=== PATIENT | female | born 1985 | race American Indian/Alaskan Native ===

== ENCOUNTER 2017-12-23 08:37 | Emergency (ER) | payer MEDICAID ==
[2017-12-23 08:47] VITALS: TEMP 97.8
[2017-12-23] MEDS ORDERED: Bacitracin Ointment 30 GM TUBE TOP STA (09:11)
--- NOTE | 2017-12-23 09:14 | C.PDOC ---
History Of Present Illness 32 yo female come in for evaluation of Left ankle/left knee pain developed [employer] after sustained twisting injury. Pt reports, "tripped over sidewalk with Left foot, fell down onto Left knee". Pt reports, pain is localized over Left ankle and knee, noted some abrasion to Left knee. Otherwise, pt denies head injury, LOC, syncope, neck pain, CP, SOB, denies deformity, weakness, sensory or vascular deficits to B/L UEs and LEs. Ambulate to ED. Time Seen by Provider: 12/23/17 08:48 Chief Complaint (Nursing): Lower Extremity Problem/Injury History Per: Patient Past Medical History Reviewed: Historical Data, Nursing Documentation, Vital Signs Vital Signs: Last Vital Signs Temp 97.8 F 12/23/17 08:42 Pulse 83 12/23/17 08:42 Resp 18 12/23/17 08:42 BP 112/72 12/23/17 08:42 Pulse Ox 97 12/23/17 09:19 - Medical History PMH: No Chronic Diseases Family History: States: No Known Family Hx - Social History Hx Alcohol Use: Yes Hx Substance Use: No - Immunization History Hx Tetanus Toxoid Vaccination: Yes (3-4 yrs ago) Hx Influenza Vaccination: No Hx Pneumococcal Vaccination: No Review Of Systems Except As Marked, All Systems Reviewed And Found Negative. Constitutional: Negative for: Fever, Chills ENT: Negative for: Ear Discharge, Nose Discharge, Throat Pain Cardiovascular: Negative for: Chest Pain, Palpitations Gastrointestinal: Negative for: Nausea, Vomiting Musculoskeletal: Positive for: Foot Pain, Other (knee pain) Skin: Positive for: Bruising Neurological: Negative for: Weakness, Numbness, Altered Mental Status, Headache Physical Exam - Physical Exam Appears: Well, Non-toxic, No Acute Distress Skin: Normal Color, Warm, Other (abrasion over Left knee) Head: Atraumatic, Normacephalic Eye(s): bilateral: PERRL Ear(s): Bilateral: Normal Nose: No Deformity, No Tenderness Neck: Normal ROM, Trachea Midline, No Midline Cervical Tenderness, No Paracervical Tenderness, No Step Off Deformity, Supple Chest: Symmetrical, No Deformity, No Tenderness Gastrointestinal/Abdominal: Soft, No Tenderness, No Distention, No Guarding Back: No Vertebral Tenderness, No Paraspinal Tenderness Extremity: Normal ROM (mild discomfort to Left ankle extension. NO neurovascular deficits.), Tenderness (over anterior aspct left knee, medial malleolus Left ankle), Capillary Refill (less than 2sec to Left foot), No Deformity, No Swelling Neurological/Psych: Oriented x3, Normal Speech, Normal Motor, Normal Sensation, Normal Reflexes ED Course And Treatment O2 Sat by Pulse Oximetry: 97 - Other Rad B/L ankle X-Ray: Interpreted by Me Interpretation: (-) acute fx or dislocation. Left knee X-Ray: Interpreted by Me Interpretation: (_) acute fx or dislocation. B/L feet X-Ray: Interpreted by Me, Viewed By Me Interpretation: (-) acute fx or dislocation Progress Note: On re-eval, pt is afebrile, hemodynamicaly stable. Non-toxic. Ambulatory in ED. Head: AT/NC. Neck: SUpple, (-) midline tenderness. Left knee: (+) abrasion over anterior aspect knee. FAROM, no neurovascular deficits. Left ankle: mild tendernes sover medial aspect ankle. no deformity. FAROM, no neurovascular deficits. IMagings review (-) acute fx or dislocation. Ivan wrap applied to Left knee. air cast applied to Left ankle. Pt advised. ref. to F/ u with Podiatry Clinic for further eval Disposition Counseled Patient/Family Regarding: Studies Performed, Diagnosis, Need For Followup, Rx Given - Disposition Referrals: [facility] [Outside] Disposition: HOME/ ROUTINE Disposition Time: 09:30 Condition: STABLE Additional Instructions: RICE-rest, ice, compression, elevation SPlint for 1 week Take Ibuprofen as need for pain Follow up with Podiatry [facility] on Sunday from 12PM-3PM for further evaluation as need return to ED if any new changes. Instructions: Ankle Sprain (DC), Skin Abrasions, Knee Sprain (DC) Forms: [employer] ([place]), Work Excuse - Clinical Impression Clinical Impression: Ankle sprain, Abrasion, Knee contusion
[2017-12-23] MEDS ORDERED: Bacitracin 500 Units/gm Oint Foilpak UD ONE (09:43)
[2017-12-23 10:22] VITALS: BP 104/68; PULSE 78; RESP 16; O2SAT 98
--- NOTE | 2017-12-23 11:50 | RAD ---
Date of service: 12/23/2017 PROCEDURE: Left Knee Radiographs. HISTORY: Pain. COMPARISON: None. FINDINGS: BONES: No acute fracture. JOINTS: Unremarkable. JOINT EFFUSION: None. OTHER FINDINGS: None. IMPRESSION: No demonstrated fracture or dislocation.
--- NOTE | 2017-12-23 11:50 | RAD ---
Date of service: 12/23/2017 PROCEDURE: Bilateral Feet Radiographs. HISTORY: ijnury COMPARISON: None. FINDINGS: BONES: Right Foot: No acute fracture. Left Foot: No acute fracture. JOINTS: Right Foot: Unremarkable. Left Foot: Unremarkable. SOFT TISSUES: Right Foot: Normal. Left Foot: Normal. OTHER FINDINGS: None. IMPRESSION: No demonstrated fracture or dislocation.
--- NOTE | 2017-12-23 11:51 | RAD ---
Date of service: 12/23/2017 PROCEDURE: Bilateral Ankle Radiographs. HISTORY: r/o fx COMPARISON: None FINDINGS: BONES: Right Ankle: No acute fracture. Left Ankle: No acute fracture. JOINTS: Right Ankle: Ankle mortise maintained. Talar dome intact. Left Ankle: Ankle mortise maintained. Talar dome intact. SOFT TISSUES: Right Ankle: Normal. Left Ankle: Normal. OTHER FINDINGS: None. IMPRESSION: No demonstrated fracture or dislocation.
== END 2017-12-23 10:21 | disposition home or self-care (01) ==
LOC: C.ER 08:37
DX: S93.402A Sprain of unspecified ligament of left ankle, initial encounter (principal); S80.02XA Contusion of left knee, initial encounter; S80.212A Abrasion, left knee, initial encounter; W01.0XXA Fall on same level from slipping, tripping and stumbling without subsequent striking against object, initial encounter; Y92.480 Sidewalk as the place of occurrence of the external cause